=== PATIENT | male | born 1980 | race Caucasian/White ===

== ENCOUNTER 2022-04-09 23:46 | Emergency (ER) | payer MEDICAID ==
[~2022-04-09] VITALS: Ht 185.4 cm; Wt 100.0 kg
[2022-04-10 00:08] VITALS: BP 133/93
[2022-04-10] MEDS ORDERED: AMOX-580 PO (01:27)
[2022-04-10] MEDS ORDERED: ibuprofen 200mg tablet PO ONE (01:30)
[2022-04-10] MEDS ORDERED: amox tr/potassium clavulanate 875/125mg TAB PO ONE (01:30)
[2022-04-10] MEDS ORDERED: ibuprofen tablet 400 MG TABLET PO ONE (01:30)
== END 2022-04-10 01:39 | disposition home or self-care (01) ==
LOC: ER 23:47
DX: K08.89 Other specified disorders of teeth and supporting structures (principal); R22.0 Localized swelling, mass and lump, head; Z79.899 Other long term (current) drug therapy
CPT/HCPCS: 99284